=== PATIENT | female | born 1970 | race Hispanic/Latino ===

== ENCOUNTER → 2025-03-20 | Outpatient (REF) | payer BC ==
[~2025-03-20] MED LIST: ALTOPREV40 MG PO; ASPIRIN81 MG PO; DICYCLOMINE HCL20 MG PO; DULCOLAX10 MG PR; FAMOTIDINE20 MG PO; GLIMEPIRIDE2 MG PO; LEVOTHYROXINE50 MCG PO; LOSARTAN POTAS100 MG PO; MACROBID 100 M100 MG PO; METRONIDAZOLE500 MG PO; ONDANSETRON ODT4 MG PO; OZEMPIC2 MG/0.75 SC; PANTOPRAZOLE SO40 MG PO; PEPCID20 MG PO; TETRACYCLINE H500 MG PO; [UNRECOGNIZED DRUG - OTHER] PO
== END ==
LOC: US 07:27
PROVIDERS: ATTEND Nurse Practitioner Family
DX: R10.9 Unspecified abdominal pain (principal)
CPT/HCPCS: 76700; 76856